=== PATIENT | female | born 1960 | race Caucasian/White ===

== ENCOUNTER → 2020-04-06 | Outpatient (CLI) | payer OTHER ==
[~2020-04-06] MED LIST: GADOTERATE 10 MMOL/20 ML VIAL ONE
== END | disposition home or self-care (01) ==
LOC: CFH 12:33
PROVIDERS: ATTEND Surgery
DX: C50.212 Malignant neoplasm of upper-inner quadrant of left female breast (principal); N63.22 Unspecified lump in the left breast, upper inner quadrant; N60.02 Solitary cyst of left breast
CPT/HCPCS: 77049; A9575; C8908

== ENCOUNTER 2020-04-14 15:28 | Outpatient (CLI) | payer OTHER ==
[2020-04-14] MEDS ORDERED: MULT-658 PO (15:46)
[2020-04-14] MEDS ORDERED: METO25TA35 PO (15:46)
[2020-04-14] MEDS ORDERED: ATOR20TA37 PO (15:46)
[2020-04-14] MEDS ORDERED: ALBU8.5H8 INH (15:46)
[2020-04-14] MEDS ORDERED: TIOT4MIS5 NS (15:46)
[2020-04-14] MEDS ORDERED: FISH1CAP PO (15:46)
[2020-04-14] MEDS ORDERED: Symbicort INH (16:07)
[2020-04-14] MEDS ORDERED: [UNRECOGNIZED DRUG - CODE] PO (16:07)
[2020-04-14 16:29] LABS: ALBUMIN 4.2 g/dL (3.4-5.0); ANION GAP 6 mmol/L (5-15); CALCIUM 9.8 mg/dL (8.5-10.1); CHLORIDE 101 mmol/L (98-107)
[2020-04-14 16:32] LABS: ALANINE AMINOTRANSFERASE 62 U/L (12-78); ALKALINE PHOSPHATASE 27 U/L (45-117); BILIRUBIN,TOTAL 0.8 mg/dL (0.2-1.0); CREATININE 0.81 mg/dL (0.55-1.02); TOTAL PROTEIN 7.4 g/dL (6.4-8.2)
== END 2020-04-14 23:59 | disposition home or self-care (01) ==
LOC: STAR 15:28
PROVIDERS: ATTEND Surgery
DX: Z01.812 Encounter for preprocedural laboratory examination (principal); C50.212 Malignant neoplasm of upper-inner quadrant of left female breast
CPT/HCPCS: 36415; 80053

== ENCOUNTER 2020-04-22 09:28 | Day surgery (SDC) | payer OTHER ==
[~2020-04-22] VITALS: Ht 165.1 cm; Wt 90.2 kg
[~2020-04-22 09:28] MED LIST changes: +ALBU8.5H8 INH; +ATOR20TA37 PO; +FISH1CAP PO; -GADOTERATE 10 MMOL/20 ML VIAL ONE; +METO25TA35 PO; +MULT-658 PO; +Symbicort INH; +TIOT4MIS5 NS; +[UNRECOGNIZED DRUG - CODE] PO
[2020-04-22] MEDS ORDERED: LIDOCAINE-MPF 1%, 5ML ONE (09:57)
[2020-04-22] MEDS ORDERED: MIDAZOLAM 1 MG/ML, 2ML ONE (10:16)
[2020-04-22] MEDS ORDERED: FENTANYL PF 100 MCG/2ML ONE ×3 (10:16→13:19)
[2020-04-22] MEDS ORDERED: CHLORHEXIDINE 15 ML UDC ONE (10:36)
[2020-04-22] MEDS: LACTATED RINGERS 1,000 ML IV SCH ×2 (10:37→10:43)
[2020-04-22] MEDS ORDERED: CHLORHEXIDINE 15 ML UDC MM ONE (11:00)
[2020-04-22] MEDS ORDERED: EPINEPHRINE 1 MG/ML, 1ML ONE (11:10)
[2020-04-22] MEDS ORDERED: BUPIVACAINE/PF 0.5% ONE (11:10)
[2020-04-22] MEDS ORDERED: ISOSULFAN BLUE 10 MG/ML, 5ML IV ONE ×2 (11:10→12:08)
[2020-04-22] MEDS ORDERED: SCOPOLAMINE 1MG PATCH TD ONE ×2 (11:12)
[2020-04-22] MEDS ORDERED: CLINDAMYCIN 150 MG/ML, 6ML ONE (11:55)
[2020-04-22] MEDS ORDERED: BUPIVACAINE/PF-EPI 0.5% 1:200K INFIL ONE (12:08)
[2020-04-22] MEDS ORDERED: GLYCOPYRROLATE 0.2MG/1ML, 5ML ONE (12:19)
[2020-04-22] MEDS ORDERED: CEFAZOLIN 1,000 MG ONE (12:19)
[2020-04-22] MEDS ORDERED: ONDANSETRON 2MG/ML, 2ML ONE (12:19)
[2020-04-22] MEDS ORDERED: PROPOFOL 10 MG/ML, 20ML ONE (12:19)
[2020-04-22] MEDS ORDERED: NEOSTIGMINE 1 MG/ML, 10ML ONE (12:19)
[2020-04-22] MEDS ORDERED: DEXAMETHASONE 4 MG/ML, 1ML ONE (12:19)
[2020-04-22] MEDS ORDERED: SUCCINYLCHOLINE 20 MG/ML, 10ML ONE (12:19)
[2020-04-22] MEDS ORDERED: ROCURONIUM 10 MG/ML,10ML ONE (12:19)
[2020-04-22] MEDS ORDERED: KETOROLAC 30 MG/1 ML IV PRN (12:30)
[2020-04-22] MEDS ORDERED: PROMETHAZINE 25 MG/ML, 1ML IV PRN (12:30)
[2020-04-22] MEDS ORDERED: hydrALAzine 20 MG/ML, 1ML IV PRN (12:30)
[2020-04-22] MEDS ORDERED: MEPERIDINE/PF 25MG/0.5ML IVPush PRN (12:30)
[2020-04-22] MEDS ORDERED: ACETAMINOPHEN 325 MG TABLET PO PRN (12:30)
[2020-04-22] MEDS ORDERED: LABETALOL 5MG/ML, 20ML IV PRN (12:30)
[2020-04-22] MEDS ORDERED: OXYcodone 5 MG/5 ML ORAL.SOL UDC PO PRN (12:30)
[2020-04-22] MEDS ORDERED: ALBUTEROL SULFATE 2.5 MG/3 ML NPPB PRN (12:30)
[2020-04-22] MEDS ORDERED: HYDROmorphone 2 MG/ML, 1ML IVPush PRN (12:30)
[2020-04-22] MEDS ORDERED: DIAZEPAM 5 MG/ML, 2ML IVPush PRN (12:30)
[2020-04-22] MEDS ORDERED: OXYcodone 5 MG/5 ML ORAL.SOL UDC ONE (13:19)
[2020-04-22] MEDS: FENTANYL PF 100 MCG/2ML IV PRN ×2 (13:20→13:28)
== END 2020-04-22 15:20 | disposition home or self-care (01) ==
LOC: OUT 09:28 → EDSTATUS 12:00 → OUT 15:20
PROVIDERS: ATTEND Surgery
DX: C50.212 Malignant neoplasm of upper-inner quadrant of left female breast (principal); Z20.828 Contact with and (suspected) exposure to other viral communicable diseases; I10 Essential (primary) hypertension; E78.5 Hyperlipidemia, unspecified; J45.909 Unspecified asthma, uncomplicated; E66.9 Obesity, unspecified; Z68.33 Body mass index [BMI] 33.0-33.9, adult; Z79.899 Other long term (current) drug therapy; Z87.891 Personal history of nicotine dependence; Z88.0 Allergy status to penicillin; Z98.890 Other specified postprocedural states
CPT/HCPCS: 19301; 36415; 38525; 38792; 87635; 88305; 88307; 88329; 88333; A9541; J0171; J0690; J1100; J2250; J2405; J2704; J2710; J3010; J7120; J0330

== ENCOUNTER 2020-07-15 07:26 | Outpatient (CLI) | payer OTHER | END 2020-07-15 23:59 | disposition home or self-care (01) | LOC: ROC 07:26 | PROVIDERS: ATTEND Radiology Radiation Oncology | DX: C50.212 Malignant neoplasm of upper-inner quadrant of left female breast (principal); I10 Essential (primary) hypertension; J45.909 Unspecified asthma, uncomplicated; E66.9 Obesity, unspecified; Z68.33 Body mass index [BMI] 33.0-33.9, adult; Z17.0 Estrogen receptor positive status [ER+]; Z79.899 Other long term (current) drug therapy; Z87.891 Personal history of nicotine dependence | CPT/HCPCS: 99212; G0463 ==

== ENCOUNTER 2020-10-14 07:40 | Outpatient (CLI) | payer OTHER | END 2020-10-14 23:59 | disposition home or self-care (01) | LOC: ROC 07:40 | PROVIDERS: ATTEND Radiology Radiation Oncology | DX: Z08 Encounter for follow-up examination after completed treatment for malignant neoplasm (principal); Z85.3 Personal history of malignant neoplasm of breast | CPT/HCPCS: 99213; G0463 ==

== ENCOUNTER 2021-03-23 09:38 | Outpatient (CLI) | payer OTHER | END 2021-03-23 23:59 | disposition home or self-care (01) | LOC: CFH 09:38 | PROVIDERS: ATTEND Radiology Radiation Oncology | DX: Z12.31 Encounter for screening mammogram for malignant neoplasm of breast (principal) | CPT/HCPCS: 77063; 77067 ==